=== PATIENT | male | born 1990 | race Two or more races ===

== ENCOUNTER 2024-06-12 19:19 | Emergency (ER) | payer MEDICAID ==
[~2024-06-12] VITALS: Ht 177.8 cm; Wt 122.3 kg
[2024-06-12 19:59] VITALS: BP 117/69; PULSE 64; RESP 16; TEMP 97.8; O2SAT 98
[2024-06-12 20:35] LABS: APPEARANCE,URINE CLEAR (CLEAR); BILIRUBIN,URINE NEGATIVE (NEGATIVE); COLOR,URINE LIGHT YELLOW (YELLOW); GLUCOSE, URINE (UA) NEGATIVE (NEGATIVE); KETONES,URINE NEGATIVE (NEGATIVE); LEUKOCYTE ESTERASE ,URINE NEGATIVE (NEGATIVE); NITRATE,URINE NEGATIVE (NEGATIVE); OCCULT BLOOD,URINE NEGATIVE (NEGATIVE); PROTEIN,URINE NEGATIVE (NEGATIVE); SPECIFIC GRAVITIY, URINE 1.025 (1.003-1.030); UROBILINOGEN,URINE <=1.0 mg/dL (<=1.0)
[2024-06-13 00:59] LABS: COVID AG,FIA SOURCE NASAL SWAB
[2024-06-13] MEDS: LIDOCAINE/PF 1% 2 ML VIAL IM ONE (01:17)
[2024-06-13] MEDS: CefTRIAXone SODIUM 1 GM/VIAL IM ONE (01:17)
[2024-06-13] MEDS: AZITHROMYCIN 500 MG TABLET PO ONE (01:17)
[2024-06-13 01:26] LABS: SARS-COV2 (COVID) ANTIGEN,FIA Negative (Negative)
[2024-06-13 01:27] LABS: INFLUENZA TYPE A NEGATIVE FOR TYPE A (NEGATIVE); INFLUENZA TYPE B NEGATIVE FOR TYPE B (NEGATIVE)
== END 2024-06-13 01:18 | disposition home or self-care (01) ==
LOC: EMS 19:19
DX: N34.2 Other urethritis (principal); Z20.822 Contact with and (suspected) exposure to COVID-19
CPT/HCPCS: 99283; 87426; 81003; 87804; 96372; J0456; J0696; J3490